=== PATIENT | female | born 1935 | race African-American/Black ===

== ENCOUNTER → 2017-06-22 | Outpatient (CLI) | payer MEDICARE, OTHER ==
[~2017-06-22] MED LIST: CALCIUM 500 +1 EAC5 PO; CO Q-10100 MG PO; CRESTOR10 MG PO; LUMIGAN2.5 M1 TOP; UNICOMPLEX M TA1 TA1 PO
== END ==
LOC: M.RAD 12-15 15:51
DX: R92.8 Other abnormal and inconclusive findings on diagnostic imaging of breast (principal); C50.511 Malignant neoplasm of lower-outer quadrant of right female breast

== ENCOUNTER → 2017-12-28 | Outpatient (CLI) | payer MEDICARE, OTHER | LOC: M.ULTRA 12:35 | DX: I73.9 Peripheral vascular disease, unspecified (principal); M79.604 Pain in right leg; M79.605 Pain in left leg ==

== ENCOUNTER → 2018-07-03 | Outpatient (CLI) | payer MEDICARE, OTHER | LOC: M.RAD 13:05 | DX: M85.89 Other specified disorders of bone density and structure, multiple sites (principal); C50.511 Malignant neoplasm of lower-outer quadrant of right female breast; Z79.811 Long term (current) use of aromatase inhibitors ==

== ENCOUNTER → 2019-10-08 | Outpatient (CLI) | payer MEDICARE, OTHER | LOC: M.RAD 13:00 | PROVIDERS: ATTEND Radiology Radiation Oncology | DX: Z12.31 Encounter for screening mammogram for malignant neoplasm of breast (principal) ==

== ENCOUNTER → 2020-10-06 | Outpatient (CLI) | payer MEDICARE, OTHER | LOC: M.RAD 13:58 | PROVIDERS: ATTEND Radiology Radiation Oncology | DX: Z12.31 Encounter for screening mammogram for malignant neoplasm of breast (principal) ==